=== PATIENT | female | born 1930 | race Hispanic/Latino ===

== ENCOUNTER → 2018-01-08 | Outpatient (CLI) | payer MEDICARE ==
[~2018-01-08] MED LIST: FUROSEMIDE40 MG PO; KLOR-CON 1010 MEQ PO; LOSARTAN POTAS100 MG PO; METOPROLOL SUCC50 MG PO; WARFARIN SODIUM2 MG PO; ZYRTEC10 M3 PO
--- NOTE | 2018-01-08 12:34 | Diagnostic Imaging Report ---
PROCEDURE: Frontal and lateral views of the chest. COMPARISON: Chest radiograph 08/22/16. INDICATIONS: SHORTNESS OF BREATH FINDINGS: Lines/tubes: Left sided implantable cardiac device body and leads are unchanged. Abandoned right sided cardiac leads are also unchanged. Lungs: The lungs are well inflated. Bibasilar opacities are present. No evidence of pulmonary edema. Pleura: Small left and trace right pleural effusion. No evidence of pneumothorax. Heart and mediastinum: The cardiomediastinal silhouette is unremarkable. Bones: No acute bony abnormality. IMPRESSION: Small left and trace right pleural effusion with bibasilar opacities, likely subsegmental atelectasis. No evidence of pulmonary edema. Dictated by: FLORENTIN CUENCA M.D. on 01/08/2018 at 12:40 Electronically approved by: FLORENTIN CUENCA M.D. on 01/08/2018 at 12:40
== END ==
LOC: RAD 11:43
PROVIDERS: ATTEND Internal Medicine
DX: R06.02 Shortness of breath (principal)
CPT/HCPCS: 71046

== ENCOUNTER 2018-05-29 07:34 | Emergency (ER) | payer OTHER ==
[~2018-05-29] VITALS: Ht 162.6 cm; Wt 80.3 kg
--- OUTSIDE RECORDS SUMMARY | 2018-05-29 07:36 | XMS REPORT ---
[facility] Address Unknown Phone Unavailable Care Team Providers Care Orthodontist Name Role Phone LILIANA JADE Unavailable Unavailable Problems This patient has no known problems. Allergies, Adverse Reactions, Alerts This patient has no known allergies or adverse reactions. Medications This patient has no known medications. Results Test Description Test Time Test Comments Text Results Atomic Results Result Comments CHEST 2 VIEWS 2018-01-08 12:40:00 [place] [id number] Patient Name: OMI MURPHY V MR #: [id number] : 1930 Age/Sex: 87/F Req #: [id number] [facility] Physician: Ordered by: LILIANA JADE MD Report #: [id number] Location: [facility] Room/Bed: Procedure: [id number] DX/CHEST 2 VIEWS Exam Date: 01/08/18 Exam Time: 1210 REPORT STATUS: Signed PROCEDURE: Frontal and lateral views of the chest. COMPARISON: Chest radiograph 08/22/16. INDICATIONS: SHORTNESS OF BREATH FINDINGS: Lines/tubes: Left sided implantable cardiac device body and leads are unchanged. Abandoned right sided cardiac leads are also unchanged. Lungs: The lungs are well inflated. Bibasilar opacities are present. No evidence of pulmonary edema. Pleura: Small left and trace right pleural effusion. No evidence of pneumothorax. Heart and mediastinum: The cardiomediastinal silhouette is unremarkable. Bones: No acute bony abnormality. IMPRESSION: Small left and trace right pleural effusion with bibasilar opacities, likely subsegmental atelectasis. No evidence of pulmonary edema. Dictated by: FLORENTIN CUENCA M.D. on 01/08/2018 at 12:40 Electronically approved by: FLORENTIN CUENCA M.D. on 01/08/2018 at 12:40 Dictated By: FLORENTIN CUENCA MD 1240 Transcribed By: CARMELITA on 01/08/18 1240 COPY TO: LILIANA JADE MD
--- NOTE | 2018-05-29 08:03 | NUR ---
DR ALLEN AT BEDSIDE FOR PATIENT EVAL
[2018-05-29] MEDS ORDERED: IPRATROPIUM BROMIDE 0.02% 2.5 ML NEB NEB ONE (08:30)
[2018-05-29] MEDS ORDERED: LEVALBUTEROL HCL SOLN NEBU 0.63 MG/3 ML NEB INH ONE (08:30)
--- NOTE | 2018-05-29 09:01 | Diagnostic Imaging Report ---
EXAMINATION: Head CT HISTORY: Status post fall, hit the head, head trauma, forehead laceration COMPARISON: None. TECHNIQUE: Multidetector axial images were obtained without contrast from the foramen magnum to the vertex . The images were reconstructed using brain and bone algorithms. Thin section brain images were reformatted into coronal and sagittal planes. Image quality: Motion/streaking artifact limits the evaluation of the skull base and posterior cranial fossa. Dose modulation, iterative reconstruction, and/or weight based adjustment of the mA/kV was utilized to reduce the radiation dose to as low as reasonably achievable. FINDINGS: Parenchyma: 1. Extensive cortical cortical encephalomalacia in the right lateral frontoparietal lobes and insula, with compensatory dilatation of the right lateral ventricle, likely the sequela from remote right MCA distribution infarct. 2. Few scattered and mildly confluent periventricular white matter hypodensities, most likely nonspecific chronic microvascular ischemic changes. 3. Age indeterminate likely chronic tiny lacunar infarcts in the head of the caudate nucleus on the right and left thalamus. 4. No mass or hemorrhage. No CT evidence of acute territorial vascular insult. Extra-axial spaces:No abnormal density. No extra-axial fluid collections Brain volume: Normal for age. Ventricles: No hydrocephalus or displacement. Arteries: No density suggestive of thrombus. Dural sinuses: No abnormal density. Extra-axial spaces: No abnormal density. Foramen magnum: No mass, Chiari malformation, or basilar invagination. Sella: No obvious mass. Paranasal/mastoid sinuses: Imaged portions unremarkable. Skull/Scalp: No lytic or blastic lesions. No fractures. Prominent forehead scalp soft tissue swelling, with right for head laceration and hematoma. No underlying fractures. IMPRESSION: 1. No acute posttraumatic intracranial hemorrhage. 2. Prominent forehead scalp swelling/hematoma and laceration without underlying fractures. 3. Chronic right MCA infarct. 4. Mild chronic microvascular ischemic changes. Signed by: Dr. Latonia Ornelas M.D. on 05/29/2018 8:58 AM
--- NOTE | 2018-05-29 09:09 | Diagnostic Imaging Report ---
EXAMINATION: CHEST 2 VIEWS INDICATION: Shortness of breath, history of CHF. COMPARISON: Report from chest radiograph on 08/18/2016, the images are not available for review. FINDINGS: TUBES and LINES: Left-sided pacemaker with dual-leads overlying the right atrial appendage and right ventricle. Additional two right-sided pacemaker leads are overlying the right ventricle. LUNGS: The lungs are moderately inflated. There are moderate perihilar and interstitial opacities. Mild patchy opacities of the lung bases. No evidence of lobar consolidation. PLEURA: Small bilateral pleural effusions. No evidence of pneumothorax. HEART AND MEDIASTINUM: There is moderate enlargement of the cardiomediastinal silhouette. BONES AND SOFT TISSUES: No acute osseous abnormality. UPPER ABDOMEN: No free air under the diaphragm. IMPRESSION: Moderate cardiomegaly with moderate pulmonary interstitial edema and small bilateral pleural effusions. Signed by: Dr. Chan Mccarthy MD on 05/29/2018 9:06 AM
[2018-05-29] MEDS ORDERED: TETANUS/DIPHTHERIA TOX ADULT 0.5 ML SYR IM ONE (09:15)
--- NOTE | 2018-05-29 09:18 | NUR ---
DR JADE AT BEDSIDE FOR PATIENT EVAL. NO SIGNS OF ACUTE DISTRESS NOTED AT THIS TIME. BREATHING TREATMENT IN PROGRESS.
--- NOTE | 2018-05-29 10:11 | NUR ---
JHONATAN LOVELACE,[employer]ANCELLATION CLERK AT BEDSIDE FOR LACERATION REPAIR. NO SIGNS OF ACUTE DISTRESS NOTED AT THIS TIME.
[2018-05-29 11:14] VITALS: BP 135/39
== END 2018-05-29 11:10 | disposition home or self-care (01) ==
LOC: ER 07:34
DX: S01.81XA Laceration without foreign body of other part of head, initial encounter (principal); W01.190A Fall on same level from slipping, tripping and stumbling with subsequent striking against furniture, initial encounter; Y92.003 Bedroom of unspecified non-institutional (private) residence as the place of occurrence of the external cause; I10 Essential (primary) hypertension; I50.9 Heart failure, unspecified; J44.9 Chronic obstructive pulmonary disease, unspecified; E03.9 Hypothyroidism, unspecified; K21.9 Gastro-esophageal reflux disease without esophagitis; Z95.0 Presence of cardiac pacemaker; Z86.73 Personal history of transient ischemic attack (TIA), and cerebral infarction without residual deficits
CPT/HCPCS: 70450; 71046; 90471; 90714; 94640; 99284